=== PATIENT | male | born 1955 | race Caucasian/White ===

== ENCOUNTER 2018-03-23 16:24 | Observation (INO) | payer MEDICARE ==
[~2018-03-23] VITALS: Ht 188 cm; Wt 98.4 kg
[~2018-03-23 16:24] MED LIST: AMIKACIN S1000 MG/4 INJ; AMLO10 PO; AZIT500 PO; BACL20 PO; CEPH500 PO; ETHA400 PO; FENT100TP TOP; GABA100 PO; HYDCHL25 PO; Imitrex50 MG JT; MORP60ER PO; MOXI400 PO; MYCOBUTIN PO; Norvasc10 MG PO; Nyamyc15 GM TP; ONDA4 PO; Senna-Docusate1 EACH PO; TUMS DUAL ACTI1 EACH PO
[2018-03-23 18:46] LABS: Troponin I <0.015 ng/mL (0.000-0.040)
[2018-03-23 18:48] LABS: Alanine Aminotransfer (ALT/SGP 31 U/L (12-78); Albumin/Globulin Ratio 1.2 (0.8-1.8); Alk Phos 102 U/L (50-136); Anion Gap Unable to Calculate mmol/L (6-16); Aspartate Aminotrans (AST/SGOT 28 U/L (12-37); Bilirubin, Total 0.3 mg/dL (0.1-1.0); Blood Urea Nitrogen 21 mg/dL (8-24); Bun/Creatinine Ratio 18.1 (12.0-20.0); CO2, Blood <1 mmol/L (21-32); Calcium, Blood <5.0 mg/dL (8.5-10.1); Chloride, Blood 106 mmol/L (98-108); Creatinine, Blood 1.16 mg/dL (0.60-1.20); Globulin, Blood 3.4 g/dL (2.2-4.0); Glomerular Filtration Rate >60 (60-); Glucose, Blood 142 mg/dL (70-99); Potassium, Blood 4.4 mmol/L (3.5-5.5); Sodium, Blood 138 mmol/L (136-145); Total Protein, Blood 7.4 g/dL (6.4-8.2)
[2018-03-23 18:56] LABS: BASOPHILS ABSOLUTE AUTO 0.05 K/mm3 (0.00-0.23); BASOPHILS PERCENT AUTO 1 % (0-2); EOSINOPHILS ABSOLUTE AUTO 0.37 K/mm3 (0.00-0.68); EOSINOPHILS PERCENT AUTO 4 % (0-6); Hematocrit 43.6 % (37.0-53.0); Hemoglobin 15.1 g/dL (13.5-17.5); IMMATURE GRAN ABSOLUTE AUTO 0.02 K/mm3 (0.00-0.10); IMMATURE GRAN PERCENT AUTO 0 % (0-1); LYMPHOCYTES ABSOLUTE AUTO 2.09 K/mm3 (0.84-5.20); LYMPHOCYTES PERCENT AUTO 22 % (21-46); MONOCYTES ABSOLUTE AUTO 0.84 K/mm3 (0.16-1.47); MONOCYTES PERCENT AUTO 9 % (4-13); Mean Corpuscular HGB 32.3 pg (26.0-34.0); Mean Corpuscular HGB Conc 34.6 g/dL (31.5-36.5); Mean Corpuscular Volume 93 fL (80-100); NEUTROPHILS ABSOLUTE AUTO 6.19 K/mm3 (1.96-9.15); NEUTROPHILS PERCENT AUTO 65 % (41-73); Platelet Count 299 K/mm3 (150-400); RDW Coefficient Variation 12.3 % (11.7-14.2); RDW Standard Deviation 42.6 fL (35.1-46.3); Red Blood Cell Count 4.68 M/mm3 (4.30-5.90); White Blood Cell Count 9.56 K/mm3 (4.00-11.30)
[2018-03-23 19:17] LABS: Alanine Aminotransfer (ALT/SGP 31 U/L (12-78); Albumin/Globulin Ratio 1.2 (0.8-1.8); Alk Phos 100 U/L (50-136); Anion Gap 7 mmol/L (6-16); Aspartate Aminotrans (AST/SGOT 24 U/L (12-37); Bilirubin, Total 0.3 mg/dL (0.1-1.0); Blood Urea Nitrogen 20 mg/dL (8-24); Bun/Creatinine Ratio 18.3 (12.0-20.0); CO2, Blood 26 mmol/L (21-32); Calcium, Blood 9.4 mg/dL (8.5-10.1); Chloride, Blood 105 mmol/L (98-108); Creatinine, Blood 1.09 mg/dL (0.60-1.20); Globulin, Blood 3.4 g/dL (2.2-4.0); Glomerular Filtration Rate >60 (60-); Glucose, Blood 160 mg/dL (70-99); Potassium, Blood 3.9 mmol/L (3.5-5.5); Sodium, Blood 138 mmol/L (136-145); Total Protein, Blood 7.4 g/dL (6.4-8.2)
[2018-03-23 19:27] LABS: International Normalized Ratio 0.94; Prothrombin Time Results 9.8 Sec (9.7-11.5)
[2018-03-24 05:55] LABS: CHOL/HDL RATIO 2.6; Cholesterol 157 mg/dL (50-200); HDL Cholesterol 61 mg/dL (>39); LDL/HDL RATIO 0.9; Low Density Lipoprotein Chol 56 mg/dL (0-110); Triglycerides 202 mg/dL (30-160); Very Low Density Lipoprot Chol 40 mg/dL (6-32)
[2018-03-24 11:47] LABS: Anion Gap 5 mmol/L (6-16); Blood Urea Nitrogen 18 mg/dL (8-24); Bun/Creatinine Ratio 17.6 (12.0-20.0); CO2, Blood 27 mmol/L (21-32); Chloride, Blood 106 mmol/L (98-108); Creatinine, Blood 1.02 mg/dL (0.60-1.20); Glomerular Filtration Rate >60 (60-); Glucose, Blood 114 mg/dL (70-99); Potassium, Blood 4.1 mmol/L (3.5-5.5); Sodium, Blood 138 mmol/L (136-145)
[2018-03-24 11:53] LABS: Calcium, Blood 9.1 mg/dL (8.5-10.1)
[2018-03-24] MEDS ORDERED: ASPI81CH PO (16:08)
[2018-03-24] MEDS ORDERED: AMLO10 PO (16:09)
[2018-03-24] MEDS ORDERED: ATOR40TA PO (16:09)
== END 2018-03-24 16:46 | disposition home or self-care (01) ==
LOC: ER 16:24 → MEDS 16:25
PROVIDERS: Emergency Medicine; Family Medicine; Internal Medicine
DX: G45.9 Transient cerebral ischemic attack, unspecified (principal); F17.210 Nicotine dependence, cigarettes, uncomplicated; I10 Essential (primary) hypertension; J44.9 Chronic obstructive pulmonary disease, unspecified; Z86.718 Personal history of other venous thrombosis and embolism; Z88.8 Allergy status to other drugs, medicaments and biological substances; Z79.82 Long term (current) use of aspirin; Z79.899 Other long term (current) drug therapy; Z98.890 Other specified postprocedural states
CPT/HCPCS: 36415; 70450; 71046; 80048; 80053; 80061; 82310; 82330; 83036; 83970; 84484; 85025; 85610; 85730; 93005; 93010; 93306; 93880; 96372; 99285; G0378; J1650

== ENCOUNTER 2019-09-12 09:26 | Emergency (ER) | payer OTHER, MEDICARE ==
[~2019-09-12] VITALS: Ht 185.4 cm; Wt 102.1 kg
[~2019-09-12 09:26] MED LIST changes: +ASPI81CH PO; +ATOR40TA PO
== END 2019-09-12 11:18 | disposition left against medical advice (07) ==
LOC: ER 09:26
DX: S39.012A Strain of muscle, fascia and tendon of lower back, initial encounter (principal); W19.XXXA Unspecified fall, initial encounter; Z88.8 Allergy status to other drugs, medicaments and biological substances; I10 Essential (primary) hypertension; Z86.73 Personal history of transient ischemic attack (TIA), and cerebral infarction without residual deficits; F17.210 Nicotine dependence, cigarettes, uncomplicated
CPT/HCPCS: 99283

== ENCOUNTER 2023-05-11 04:05 | Observation (INO) | payer MEDICARE ==
[~2023-05-11] VITALS: Ht 182.9 cm; Wt 96.0 kg
[~2023-05-11 04:05] MED LIST changes: +ASPIR 8181 M1 PO
[2023-05-11 05:54] LABS: BASOPHILS ABSOLUTE AUTO 0.06 K/mm3 (0.00-0.23); BASOPHILS PERCENT AUTO 1 % (0-2); EOSINOPHILS ABSOLUTE AUTO 0.24 K/mm3 (0.00-0.68); EOSINOPHILS PERCENT AUTO 3 % (0-6); Hematocrit 40.4 % (37.0-53.0); Hemoglobin 13.7 g/dL (13.5-17.5); IMMATURE GRAN ABSOLUTE AUTO 0.05 K/mm3 (0.00-0.10); IMMATURE GRAN PERCENT AUTO 1 % (0-1); LYMPHOCYTES ABSOLUTE AUTO 1.78 K/mm3 (0.84-5.20); LYMPHOCYTES PERCENT AUTO 23 % (21-46); MONOCYTES PERCENT AUTO 12 % (4-13); Mean Corpuscular HGB 31.8 pg (26.0-34.0); Mean Corpuscular HGB Conc 33.9 g/dL (31.5-36.5); Mean Corpuscular Volume 94 fL (80-100); NEUTROPHILS ABSOLUTE AUTO 4.75 K/mm3 (1.96-9.15); NEUTROPHILS PERCENT AUTO 61 % (41-73); NRBC ABSOLUTE 0.02 K/mm3 (0.00-0.02); NRBC Auto 0.3 /100 WBC (0.0-0.2); RDW Coefficient Variation 12.4 % (11.7-14.2); RDW Standard Deviation 43.4 fL (35.1-46.3); Red Blood Cell Count 4.31 M/mm3 (4.30-5.90); White Blood Cell Count 7.78 K/mm3 (4.00-11.30)
[2023-05-11 05:56] LABS: Mean Platelet Volume 9.1 fL (9.1-12.4); Platelet Count 274 K/mm3 (150-400)
[2023-05-11 06:19] LABS: Bun/Creatinine Ratio 17.5 (12.0-20.0); Calcium, Blood 8.9 mg/dL (8.5-10.1); Creatinine, Blood 1.26 mg/dL (0.60-1.20); Potassium, Blood 4.1 mmol/L (3.5-5.5)
[2023-05-11 08:09] LABS: CHOL/HDL RATIO 3.1; Cholesterol 173 mg/dL (50-200); HDL Cholesterol 56 mg/dL (>39); LDL/HDL RATIO 1.7; Low Density Lipoprotein Chol 98 mg/dL (0-110); Triglycerides 97 mg/dL (30-160); Very Low Density Lipoprot Chol 19 mg/dL (6-32)
[2023-05-11 09:11] VITALS: BP 169/104
[2023-05-11 09:36] VITALS: BP 168/94
--- NOTE | 2023-05-11 10:10 | NUR ---
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 PT STATES VALIUM DID NOT WORK IN THE PAST. PT ALSO VERBALIZES THAT HE WOULD LIKE TO BE A DNR. DR. CRUZ NOTIFIED AND DNR ORDER PLACED ALONG WITH A ONE TIME ATIVAN ORDER FOR HIS MRI.
--- NOTE | 2023-05-11 11:07 | NUR ---
PT ARRIVED TO ROOM AOX4 AND COOPERATIVE OF CARE VIA WHEELCHAIR. HAD TROUBLE WITH TUBING SYSTEM AND DUE TO THIS TELE WAS LATE GETTING APPLIED NEW ONE HAD TO BE REISSUED.
[2023-05-11 15:41] VITALS: BP 165/109
--- NOTE | 2023-05-11 16:15 | NUR ---
PT HAS BEEN AOX4 AND COOPERATIVE OF ALL CARE. PT HAS HAD ALL SYMTOMS OF L SIDED WEAKNESS RESOLVE PRIOR TO COMMING TO MEDICAL FLOOR. PT WAS TREATED FOR ANXIETY DUE TO NEED FOR MRI. MULTIPLE TRIES WERE DONE TO GET IV PLACED AND NONE WERE SUCCESSFUL. PO ATIVAN WAS GIVEN IN PLACE OF IV. PT WAS ABLE TO COMPLETE MRI. NO DISTRESS NOTED AT THIS TIME WILL CONTINUE TO MONITOR. REMOTE IS WITHIN REACH.
[2023-05-11 17:04] VITALS: BP 160/92
--- NOTE | 2023-05-11 17:44 | NUR ---
PT HAS HAD BP RUNNING HIGHER LAST ONE WAS 160/92. DR VIVAS WAS NOTIFIED OF THIS AND MADE CHANGES TO EMAR.
--- NOTE | 2023-05-11 18:07 | NUR ---
PT HAS HAD NEURO CHECK AT 1000, 1400, AND 1800 AND ALL THREE ARE NEGATIVE AT THIS TIME.
[2023-05-11 20:17] VITALS: BP 192/109
[2023-05-11 20:19] VITALS: BP 196/119
[2023-05-12 04:30] VITALS: BP 145/81
--- NOTE | 2023-05-12 05:14 | NUR ---
SHIFT SUMMARY: PT A&O X4. PT PLEASANT AND COOPERATIVE WITH CARE. PT INDEPENDENT IN ROOM AND IN HALLS. NEURO CHECKS COMPLETED Q4. ALL SYMPTOMS OF L.SIDED WEAKNESS APPEAR TO HAVE RESOLVED. IV ATTEMPTS MADE BUT UNABLE TO OBTAIN IV ACCESS. WILL INFORM DAY SHIFT. TELE IN PLACE RUNNING SINUS RHYTHM. MRI RESULTS FROM PREVIOUS SHIFT IN CHART. PT HAD HYPERTENSION OF SYSTOLIC IN 190'S AT BEGINNING OF SHIFT. MEDICATED PER EMAR. DOWN TO 145/81. PT ASLEEP MOST OF THIS SHIFT. CALL LIGHT IN REACH. BED IN LOWEST POSITION. WILL CONTINUE TO MONITOR.
[2023-05-12 06:19] LABS: Hemoglobin 14.1 g/dL (13.5-17.5); Mean Corpuscular HGB 31.8 pg (26.0-34.0); Mean Corpuscular HGB Conc 34.4 g/dL (31.5-36.5); Mean Corpuscular Volume 92 fL (80-100); Mean Platelet Volume 9.1 fL (9.1-12.4); Platelet Count 299 K/mm3 (150-400); RDW Coefficient Variation 12.5 % (11.7-14.2); RDW Standard Deviation 42.7 fL (35.1-46.3); Red Blood Cell Count 4.44 M/mm3 (4.30-5.90); White Blood Cell Count 6.24 K/mm3 (4.00-11.30)
[2023-05-12 06:36] LABS: Bun/Creatinine Ratio 21.1 (12.0-20.0); Calcium, Blood 9.1 mg/dL (8.5-10.1); Creatinine, Blood 1.09 mg/dL (0.60-1.20)
[2023-05-12 07:37] VITALS: BP 168/77
[2023-05-12 11:46] VITALS: BP 153/78
[2023-05-12] MEDS ORDERED: Acetaminophen650 M1 PO (14:18)
[2023-05-12] MEDS ORDERED: ATOR80 PO (14:19)
[2023-05-12] MEDS ORDERED: PROAIR RESPICL90 MCG (14:20)
[2023-05-12] MEDS ORDERED: AMLO5 PO (14:20)
[2023-05-12] MEDS ORDERED: METO50ER PO (14:21)
[2023-05-12] MEDS ORDERED: ASPI81CH PO (14:21)
--- NOTE | 2023-05-12 15:09 | NUR ---
PT DISCHARGED AT 1440 ALL PAPERWORKED REVIEWED AND EDUCATIONAL MATERIAL SENT WITH PT. PT AOX4 AND NEURO CHECKS AT 0800 AND 1200 WERE NEGATIVE. PT HAD ALL PERSONAL ITEMS AND REFUSED ESCORT OUT AMBULATING ON HIS OWN. PT AMBULATING WELL.
== END 2023-05-12 14:55 | disposition home or self-care (01) ==
LOC: ER 04:05 → MEDS 04:06
PROVIDERS: Emergency Medicine; ADMIT Internal Medicine
DX: G45.9 Transient cerebral ischemic attack, unspecified (principal); I10 Essential (primary) hypertension; J44.9 Chronic obstructive pulmonary disease, unspecified; G89.29 Other chronic pain; M54.9 Dorsalgia, unspecified; E78.5 Hyperlipidemia, unspecified; I73.9 Peripheral vascular disease, unspecified; Z66 Do not resuscitate; Z88.8 Allergy status to other drugs, medicaments and biological substances
CPT/HCPCS: 36415; 70450; 70551; 80048; 80061; 84484; 85025; 85027; 93005; 93010; 93306; 93880; 96372; 97161; 99285-25; A9270; G0378; J1650; J2060

== ENCOUNTER 2024-11-29 02:10 | Observation (INO) | payer MEDICARE, OTHER ==
[~2024-11-29] VITALS: Ht 188 cm; Wt 106.1 kg
[~2024-11-29 02:10] MED LIST changes: +AMLO5 PO; +ATOR80 PO; +Acetaminophen650 M1 PO; +METO50ER PO; +PROAIR RESPICL90 MCG
[2024-11-29 02:52] LABS: BASOPHILS ABSOLUTE AUTO 0.09 K/mm3 (0.00-0.23); BASOPHILS PERCENT AUTO 1 % (0-2); EOSINOPHILS PERCENT AUTO 5 % (0-6); Hematocrit 38.5 % (37.0-53.0); Hemoglobin 13.6 g/dL (13.5-17.5); IMMATURE GRAN ABSOLUTE AUTO 0.05 K/mm3 (0.00-0.10); IMMATURE GRAN PERCENT AUTO 1 % (0-1); LYMPHOCYTES ABSOLUTE AUTO 2.37 K/mm3 (0.84-5.20); LYMPHOCYTES PERCENT AUTO 27 % (21-46); MONOCYTES ABSOLUTE AUTO 0.76 K/mm3 (0.16-1.47); MONOCYTES PERCENT AUTO 9 % (4-13); Mean Corpuscular HGB 33.3 pg (26.0-34.0); Mean Corpuscular HGB Conc 35.3 g/dL (31.5-36.5); Mean Corpuscular Volume 94 fL (80-100); Mean Platelet Volume 9.2 fL (9.1-12.4); NEUTROPHILS ABSOLUTE AUTO 5.11 K/mm3 (1.96-9.15); NEUTROPHILS PERCENT AUTO 58 % (41-73); Platelet Count 268 K/mm3 (150-400); RDW Coefficient Variation 12.8 % (11.7-14.2); RDW Standard Deviation 44.3 fL (35.1-46.3); Red Blood Cell Count 4.08 M/mm3 (4.30-5.90); White Blood Cell Count 8.78 K/mm3 (4.00-11.30)
[2024-11-29 03:16] LABS: Alanine Aminotransfer (ALT/SGP 28 U/L (12-78); Albumin, Blood 3.7 g/dL (3.4-5.0); Albumin/Globulin Ratio 1.2 (0.8-1.8); Alk Phos 92 U/L (50-136); Anion Gap 12 mmol/L (3-11); Aspartate Aminotrans (AST/SGOT 22 U/L (12-37); Bilirubin, Total 0.4 mg/dL (0.1-1.0); Blood Urea Nitrogen 26 mg/dL (8-24); Bun/Creatinine Ratio 22.6 (12.0-20.0); CO2, Blood 21 mmol/L (21-32); Calcium, Blood 9.3 mg/dL (8.5-10.1); Chloride, Blood 108 mmol/L (98-108); Creatinine, Blood 1.15 mg/dL (0.60-1.20); Globulin, Blood 3.2 g/dL (2.2-4.0); Glomerular Filtration Rate 70 (60-); Glucose, Blood 182 mg/dL (70-99); Potassium, Blood 4.3 mmol/L (3.5-5.5); Sodium, Blood 137 mmol/L (136-145); Total Protein, Blood 6.9 g/dL (6.4-8.2)
[2024-11-29 03:52] LABS: International Normalized Ratio 0.91; Prothrombin Time Results 9.8 Sec (9.7-11.5)
[2024-11-29 04:14] LABS: Ethanol (Alcohol), Blood, Med <3 mg/dL; Phosphorus, Blood 2.9 mg/dL (2.5-4.9)
[2024-11-29] MEDS ORDERED: Nicotine 14 MG PATCH TOP ONE (04:15)
[2024-11-29] MEDS ORDERED: FLU VACC TS2024-25(6MOS UP)/PF 45 MCG/0.5 ML SYRINGE IM ONE (04:35)
[2024-11-29] MEDS ORDERED: Acetaminophen 325 MG TABLET PO PRN (04:40)
[2024-11-29] MEDS ORDERED: Ondansetron HCl 2 MG / ML 2ML Vial IV PRN (04:40)
[2024-11-29] MEDS ORDERED: Clopidogrel Bisulfate 75 MG Tab PO SCH (05:00)
[2024-11-29] MEDS ORDERED: Aspirin 81 MG Chew PO SCH (05:00)
[2024-11-29 05:46] LABS: Source, Urine Clean Catch
[2024-11-29 06:07] LABS: Bilirubin, Urine Neg (Neg); Blood, Urine Neg (Neg); Glucose Qualitative, Urine 1+ (Neg); Ketones, Urine Neg (Neg); Leukocyte Esterase, Urine Neg (Neg); Nitrite, Urine Neg (Neg); Protein, Urine Neg (Neg); Urobilinogen, Urine NORM (Normal)
[2024-11-29 06:08] LABS: Appearance, Urine Clear (Clear); Color, Urine Yellow (P-Yellow)
[2024-11-29 06:28] LABS: U Amphetamine Screen Not Detected; U Barbituate Screen Not Detected; U Benzodiazapine Screen Not Detected; U Buprenorphine Screen Not Detected; U Cannabinoids Screen Not Detected; U Cocaine Screen Not Detected; U Methadone Screen Not Detected; U Methamphetamine Screen Not Detected; U Opiates Screen Not Detected; U Oxycodone Screen Not Detected; U Phencyclidine Screen Not Detected
[2024-11-29 06:36] LABS: CHOL/HDL RATIO 3.4; Cholesterol 223 mg/dL (50-200); HDL Cholesterol 65 mg/dL (>39); LDL/HDL RATIO 1.6; Low Density Lipoprotein Chol 101 mg/dL (0-110); Triglycerides 285 mg/dL (30-160); Very Low Density Lipoprot Chol 57 mg/dL (6-32)
[2024-11-29] MEDS ORDERED: Atorvastatin 40 MG Tab PO SCH (09:00)
[2024-11-29 13:45] VITALS: BP 182/81
[2024-11-29 15:29] VITALS: BP 170/102
[2024-11-29] MEDS ORDERED: HydrALAZINE HCl 20 MG / ML 1ML Vial IV ONE (16:00)
[2024-11-29 16:29] VITALS: BP 151/88
--- NOTE | 2024-11-29 17:07 | NUR ---
ADMISSION AND DISCHARGE PATIENT ADMITTED AND DISCHARGED FROM MEDICAL FLOOR. PATIENT HAD STROKE LIKE SYMPTOMS BUT SHOWED NO NEW STROKE WITH WORK UP. PATIENT ALERT ABLE TO WALK WITH PT WITHOUT ASSISTIVE DEVICES. PATIENT ABLE TO ANSWER QUESTIONS BUT FORGETFUL. PATIENT ADMITS PRIOR TO DISCHARGE THAT HE DOES NOT HAVE ANY MEDICATIONS AT HOME AND HAS NOT BEEN TAKING THEM FOR A LONG TIME. PROVIDED EDUCATION ON THE IMPORTANCE OF TAKING MEDICATIONS, DIET AND STIMULANT REDUCTION TO HELP REDUCE BLOOD PRESSURE. PATIENT ENCOURAGED TO MONITOR BLOOD PRESSURE AND OBTAIN PCP. IV DC'D. DISCHARGE INSTRUCTIONS REVIEWED WITH PATIENT AND FAMILY. PATIENT ESCORTED OUT VIA WHEELCHAIR. BELONGINGS SENT HOME WIHT PATIENT.
--- NOTE | 2024-11-29 17:36 | NUR ---
RX CALLED TO [facility] PATIENT DOES NOT HAVE MEDICATIONS AVAILABLE AT HOME. ORDER OBTAINED FROM DR WEBSTER TO CALL IN 30 DAY SUPPLY OF MEDICATIONS. MEDICATIONS CALLED TO [facility] AND MESSAGE LEFT.
== END 2024-11-29 17:00 | disposition home or self-care (01) ==
LOC: ER 02:10 → ERHOLD 02:11 → MEDS 13:38 → ENPENDDIS 15:55 → MEDS 17:00
PROVIDERS: Emergency Medicine; ADMIT Student in an Organized Health Care Education/Training Program
DX: I63.9 Cerebral infarction, unspecified (principal); R29.702 NIHSS score 2; I10 Essential (primary) hypertension; J44.9 Chronic obstructive pulmonary disease, unspecified; F10.10 Alcohol abuse, uncomplicated; F17.210 Nicotine dependence, cigarettes, uncomplicated; Z88.8 Allergy status to other drugs, medicaments and biological substances; Z79.82 Long term (current) use of aspirin; Z79.899 Other long term (current) drug therapy
CPT/HCPCS: 36415; 70450; 70496; 70498; 70551; 71045; 80053; 80061; 80320; 81003; 83036; 83735; 84100; 85025; 85610; 85730; 90656; 93005; 93010; 93306; 93880; 96374; 97110; 97116; 97161; 99285-25; A9270; G0008; G0378; J0360; Q9967

== ENCOUNTER 2025-03-28 19:00 | Emergency (ER) | payer MEDICARE, OTHER | END 2025-03-28 19:45 | disposition left against medical advice (07) | LOC: ER 19:00 | DX: Z53.21 Procedure and treatment not carried out due to patient leaving prior to being seen by health care provider (principal) ==

== ENCOUNTER 2025-06-13 14:27 | Inpatient (IN) | payer MEDICARE, OTHER ==
[~2025-06-13] VITALS: Ht 188 cm; Wt 103.1 kg
[2025-06-13] VITALS (16 sets, daily range): BP systolic 122–150; BP diastolic 57–70
[2025-06-13] MEDS ORDERED: NS 1,000 ML IV SCH ×2 (14:35→18:25)
[2025-06-13 15:07] LABS: BASOPHILS ABSOLUTE AUTO 0.01 K/mm3 (0.00-0.23); BASOPHILS PERCENT AUTO 0 % (0-2); EOSINOPHILS ABSOLUTE AUTO 0.01 K/mm3 (0.00-0.68); EOSINOPHILS PERCENT AUTO 0 % (0-6); Hematocrit 46.5 % (37.0-53.0); Hemoglobin 15.0 g/dL (13.5-17.5); IMMATURE GRAN ABSOLUTE AUTO 0.06 K/mm3 (0.00-0.10); IMMATURE GRAN PERCENT AUTO 1 % (0-1); LYMPHOCYTES ABSOLUTE AUTO 0.47 K/mm3 (0.84-5.20); LYMPHOCYTES PERCENT AUTO 4 % (21-46); MONOCYTES ABSOLUTE AUTO 0.57 K/mm3 (0.16-1.47); MONOCYTES PERCENT AUTO 4 % (4-13); Mean Corpuscular HGB Conc 32.3 g/dL (31.5-36.5); Mean Corpuscular Volume 99 fL (80-100); NEUTROPHILS ABSOLUTE AUTO 11.72 K/mm3 (1.96-9.15); NEUTROPHILS PERCENT AUTO 91 % (41-73); NRBC ABSOLUTE 0.00 K/mm3 (0.00-0.02); NRBC Auto 0.0 /100 WBC (0.0-0.2); Platelet Count 266 K/mm3 (150-400); RDW Coefficient Variation 12.9 % (11.7-14.2); RDW Standard Deviation 47.2 fL (35.1-46.3)
[2025-06-13 15:19] LABS: U Amphetamine Screen DETECTED; U Barbituate Screen Not Detected; U Benzodiazapine Screen Not Detected; U Buprenorphine Screen Not Detected; U Cannabinoids Screen Not Detected; U Cocaine Screen Not Detected; U Methadone Screen Not Detected; U Methamphetamine Screen DETECTED; U Opiates Screen Not Detected; U Oxycodone Screen Not Detected; U Phencyclidine Screen Not Detected
[2025-06-13] MEDS ORDERED: CefTRIAXone Sodium 1,000 MG in NS 100 ML IV ONE (15:20)
[2025-06-13 15:46] LABS: Source, Urine Foley catheter
[2025-06-13 15:50] LABS: Bilirubin, Urine Neg (Neg); Color, Urine Yellow (P-Yellow); Glucose Qualitative, Urine Neg (Neg); Ketones, Urine Neg (Neg); Leukocyte Esterase, Urine Neg (Neg); Protein, Urine 3+ (Neg); Specific Gravity, Urine 1.025 (1.003-1.022); Urobilinogen, Urine NORM (Normal)
[2025-06-13 16:00] LABS: pH Blood Arterial 7.30 (7.35-7.45)
[2025-06-13 16:19] LABS: Alanine Aminotransfer (ALT/SGP 65 U/L (12-78); Albumin, Blood 4.3 g/dL (3.4-5.0); Albumin/Globulin Ratio 1.2 (0.8-1.8); Anion Gap 10 mmol/L (3-11); Aspartate Aminotrans (AST/SGOT 94 U/L (12-37); Bilirubin, Total 0.4 mg/dL (0.1-1.0); Blood Urea Nitrogen 32 mg/dL (8-24); CO2, Blood 24 mmol/L (21-32); Calcium, Blood 9.3 mg/dL (8.5-10.1); Chloride, Blood 109 mmol/L (98-108); Creatinine, Blood 3.24 mg/dL (0.60-1.20); Globulin, Blood 3.5 g/dL (2.2-4.0); Glucose, Blood 131 mg/dL (70-99); Potassium, Blood 5.1 mmol/L (3.5-5.5); Sodium, Blood 138 mmol/L (136-145); Total Protein, Blood 7.8 g/dL (6.4-8.2)
[2025-06-13 16:21] LABS: Ethanol (Alcohol), Blood, Med <3 mg/dL
[2025-06-13] MEDS ORDERED: Ipratropium/Albuterol SulF 2.5-0.5MG/3 ML Amp INH SCH ×2 (18:25→19:40)
[2025-06-13] MEDS ORDERED: HydrALAZINE HCl 20 MG / ML 1ML Vial IV PRN (18:30)
[2025-06-13] MEDS ORDERED: Albuterol 2.5 MG/3 ML VIAL INH PRN (18:30)
[2025-06-13] MEDS ORDERED: NS 1,000 ML IV ONE (19:00)
[2025-06-13] MEDS ORDERED: Cetylpyridinium Chloride 1 EA MISC MT SCH (20:00)
[2025-06-13 20:41] LABS: Anion Gap 9.0 mmol/L (3-11); Blood Urea Nitrogen 33.0 mg/dL (8-24); CO2, Blood 24.0 mmol/L (21-32); Calcium, Blood 8.6 mg/dL (8.5-10.1); Chloride, Blood 110.0 mmol/L (98-108); Creatinine, Blood 2.9 mg/dL (0.60-1.20); Glucose, Blood 123.0 mg/dL (70-99); Potassium, Blood 4.6 mmol/L (3.5-5.5); Sodium, Blood 138.0 mmol/L (136-145)
[2025-06-13] MEDS ORDERED: Heparin Sodium,Porcine 5,000 UNIT/0.5 ML SDV SC SCH (21:00)
[2025-06-13 22:12] LABS: pH Blood Venous 7.24 (7.34-7.37)
[2025-06-14] VITALS (87 sets, daily range): BP systolic 96–148; BP diastolic 49–109
[2025-06-14] MEDS ORDERED: Hydrogen Peroxide 1.5 % Solution MT SCH
[2025-06-14 04:27] LABS: BASOPHILS ABSOLUTE AUTO 0.02 K/mm3 (0.00-0.23); BASOPHILS PERCENT AUTO 0 % (0-2); EOSINOPHILS ABSOLUTE AUTO 0.00 K/mm3 (0.00-0.68); EOSINOPHILS PERCENT AUTO 0 % (0-6); Hematocrit 41.1 % (37.0-53.0); Hemoglobin 13.6 g/dL (13.5-17.5); IMMATURE GRAN ABSOLUTE AUTO 0.06 K/mm3 (0.00-0.10); IMMATURE GRAN PERCENT AUTO 0 % (0-1); LYMPHOCYTES ABSOLUTE AUTO 0.85 K/mm3 (0.84-5.20); LYMPHOCYTES PERCENT AUTO 6 % (21-46); MONOCYTES ABSOLUTE AUTO 1.19 K/mm3 (0.16-1.47); MONOCYTES PERCENT AUTO 8 % (4-13); Mean Corpuscular HGB Conc 33.1 g/dL (31.5-36.5); Mean Corpuscular Volume 98 fL (80-100); NEUTROPHILS ABSOLUTE AUTO 12.84 K/mm3 (1.96-9.15); NEUTROPHILS PERCENT AUTO 86 % (41-73); NRBC ABSOLUTE 0.00 K/mm3 (0.00-0.02); NRBC Auto 0.0 /100 WBC (0.0-0.2); Platelet Count 180 K/mm3 (150-400); RDW Coefficient Variation 13.1 % (11.7-14.2); RDW Standard Deviation 46.9 fL (35.1-46.3)
[2025-06-14 05:07] LABS: Magnesium, Blood 2.0 mg/dL (1.6-2.4); Uric Acid, Blood 8.4 mg/dL (3.5-7.2)
[2025-06-14 05:11] LABS: Alanine Aminotransfer (ALT/SGP 56.0 U/L (12-78); Albumin, Blood 3.2 g/dL (3.4-5.0); Albumin/Globulin Ratio 1.0 (0.8-1.8); Anion Gap 9.0 mmol/L (3-11); Aspartate Aminotrans (AST/SGOT 104.0 U/L (12-37); Bilirubin, Total 0.4 mg/dL (0.1-1.0); Blood Urea Nitrogen 36.0 mg/dL (8-24); CO2, Blood 23.0 mmol/L (21-32); Calcium, Blood 8.5 mg/dL (8.5-10.1); Chloride, Blood 113.0 mmol/L (98-108); Creatinine, Blood 2.72 mg/dL (0.60-1.20); Globulin, Blood 3.1 g/dL (2.2-4.0); Glucose, Blood 139.0 mg/dL (70-99); Phosphorus, Blood 5.4 mg/dL (2.5-4.9); Potassium, Blood 4.9 mmol/L (3.5-5.5); Sodium, Blood 140.0 mmol/L (136-145); Total Protein, Blood 6.3 g/dL (6.4-8.2)
[2025-06-14 06:00] LABS: pH Blood Arterial 7.24 (7.35-7.45)
[2025-06-14] MEDS ORDERED: Pantoprazole Sodium 40 MG Injection IV SCH (06:00)
--- NOTE | 2025-06-14 06:25 | NUR ---
SHIFT SUMMARY: PT ADMITTED LATE AFTERNOON, YESTERDAY, PT POST CARDIAC ARREST. PT UNRESPONSIVE AND INTUBATED. NO FAMILY W/PT. PT REMAINS MAINLY UNRESPONSIVE, ONLY INTERMITTENTLY RESPONSIVE TO PAINFUL STIMULI. PT HAS UPWARD-RIGHT GAZE, MAKES NON-PURPOSEFUL MOVEMENTS (MAILY W/R EXTREMITIES). L SIDED WEAKNESS NOTABLE (NO MOVEMENT SEEN IN LUE) AND MINIMAL MOVEMENT IN LLE. PT REMAINS VENTED. SETTINGS AC/VC 16/500/8/45%. SBP STABLE. MAP>65. HR 90S, SINUS. ABD SOFT TO PALPATION, BT HYPOACTIVE X4. TEMP TELLO IN PLACE, PATENT, DRAINING TO GRAVITY. PT HAS I/O ACCESS ONLY ALL PERIPHERAL IV ATTEMPTS EITHER INFILTRATED OR BLEW. THIS RN TO CONTINUE TO MONITOR AND REPORT TO ONCOMING RN.
--- NOTE | 2025-06-14 08:57 | NUR ---
[place] of Care: Care assumed at 0700hr. Patient intubated, but not on any sedation since arrival to ICU yesterday. Patient mostly unresponsive, no response to verbal stimuli. No withdraw to painful stimuli on all 4 extremities. Slight brow furrow with oral stimuli. No gag reflex but does have cough reflex and plantar reflex. Pupils 1-2mm with no response to light and fixed upward gaze. Breathing at backup rate on vent of 16. Rt then turned backup respiratory rate, patient initiated his own breaths at approx 12/min. Tolerating vent without difficulty. X2 I/O's in place, both patent and intact. Plan to place PICC line this morning and remove I/O's. Bilateral soft wrist restraints removed due minimal responsiveness. Will continue to monitor.
[2025-06-14] MEDS ORDERED: Magnesium Hydroxide Conc 10 ML UDC PT PRN (12:50)
[2025-06-14] MEDS ORDERED: Docusate Sodium Liquid 100 MG UDC PT PRN (12:50)
[2025-06-14] MEDS ORDERED: NS 1,000 ML IV SCH (14:05)
[2025-06-14] MEDS ORDERED: Vancomycin (Pharmacy Consult) IV SCH (14:05)
[2025-06-14] MEDS ORDERED: Vancomycin HCL 2,500 MG in NS 500 ML IV ONE (14:20)
[2025-06-14] MEDS ORDERED: CefTRIAXone Sodium 1,000 MG in NS 100 ML IV SCH (14:30)
[2025-06-14] MEDS ORDERED: NS 250 ML IV PRN (14:35)
--- NOTE | 2025-06-14 18:02 | NUR ---
Shift Summary: No significant changes throughout shift. Neuro assessment remains unchanged (see assumption note). OG tube placed this morning for PT medications and tube feeding. No s/s of GI intolerance thus far. PICC line placed mid day via difficult and only have IO access. PICC line remains patent and intact. Marai cath remains patent and intact, draining clear yellow urine, approx 1L output this shift. X2 Sisters at bedside today, who had multiple conversations with this RN and Dr. Byrd. Plan established to give patient 48-72hr, but likely transition to comfort measures if no meaningful improvement noted.
[2025-06-15] VITALS (55 sets, daily range): BP systolic 108–167; BP diastolic 45–85
[2025-06-15 03:43] LABS: BASOPHILS ABSOLUTE AUTO 0.03 K/mm3 (0.00-0.23); BASOPHILS PERCENT AUTO 0 % (0-2); EOSINOPHILS ABSOLUTE AUTO 0.05 K/mm3 (0.00-0.68); EOSINOPHILS PERCENT AUTO 0 % (0-6); Hematocrit 33.3 % (37.0-53.0); Hemoglobin 10.8 g/dL (13.5-17.5); IMMATURE GRAN ABSOLUTE AUTO 0.03 K/mm3 (0.00-0.10); IMMATURE GRAN PERCENT AUTO 0 % (0-1); LYMPHOCYTES ABSOLUTE AUTO 1.02 K/mm3 (0.84-5.20); LYMPHOCYTES PERCENT AUTO 9 % (21-46); MONOCYTES ABSOLUTE AUTO 0.73 K/mm3 (0.16-1.47); MONOCYTES PERCENT AUTO 6 % (4-13); Mean Corpuscular HGB Conc 32.4 g/dL (31.5-36.5); Mean Corpuscular Volume 100 fL (80-100); NEUTROPHILS ABSOLUTE AUTO 10.20 K/mm3 (1.96-9.15); NEUTROPHILS PERCENT AUTO 85 % (41-73); NRBC ABSOLUTE 0.00 K/mm3 (0.00-0.02); NRBC Auto 0.0 /100 WBC (0.0-0.2); Platelet Count 168 K/mm3 (150-400); RDW Coefficient Variation 13.3 % (11.7-14.2); RDW Standard Deviation 49.3 fL (35.1-46.3)
--- NOTE | 2025-06-15 06:03 | NUR ---
SHIFT SUMMARY: PT REMAINS VENTED. NO SEDATION SINCE ADMIT. PT RESPONSIVE TO ORAL CARE/TURNS. HE FURROWS BROWS AND WILL RAISE PRAKASH AND RLE. PT OBSERVED TO SCRATCH HIMSELF, WHICH APPEARED INTENTIONAL. R EYE NOW RESPONSIVE TO LIGHT WHILE L EYE CONTINUES TO BE FIXED. PT NOW OPENS EYES OCCASSIONALLY DURING CARE. HIS GAZE NOW MOVES AROUND, NOT ONLY FIXED UPWARD; DOES NOT MAKE APPROPRIATE EYE CONTACT. CORNEAL REFLEX REMAINS INTACT. PT VENT SETTINGS ARE AC/VC 16/500/8/FIO2 45%. SATS >95%. PT HAS OCCASSIONAL COUGH W/MODERATE PRODUCTION OF THICK BROWN/YELLOW SECRETIONS. NO GAG OR SWALLOW REFLEX NOTED. SBP REMAINS STABLE, NO PRESSORS INFUSING. MAPS>65. HR 70S-90S. BT HYPOACTIVE X4. TEMP TELLO PATENT, DRAINING TO GRAVITY. PT HAS PICC IN AMPARO, INFUSING TKO, NS, 10ML/HR.
[2025-06-15 08:05] LABS: Anion Gap 13 mmol/L (3-11); Blood Urea Nitrogen 44 mg/dL (8-24); CO2, Blood 24 mmol/L (21-32); Calcium, Blood 8.6 mg/dL (8.5-10.1); Chloride, Blood 111 mmol/L (98-108); Creatinine, Blood 2.08 mg/dL (0.60-1.20); Glucose, Blood 204 mg/dL (70-99); Magnesium, Blood 2.1 mg/dL (1.6-2.4); Phosphorus, Blood 2.5 mg/dL (2.5-4.9); Potassium, Blood 4.5 mmol/L (3.5-5.5); Sodium, Blood 143 mmol/L (136-145)
[2025-06-15] MEDS ORDERED: Lactobacil 2-S.Thermo-Bifido 1 1 Cap PO SCH (09:00)
--- NOTE | 2025-06-15 09:22 | NUR ---
FAMILY CONTACT THIS RN SPEAKING TO PT'S BROTHER "BERT" WHE CALLED AND REQUESTED AN UPDATE ON THE PT'S CONDITION. BERT WAS GIVEN AN UPDATE AND THANKED THIS RN FOR THE INFORMATION.
--- NOTE | 2025-06-15 10:08 | NUR ---
PT'S SISTERS WERE HERE FROM [place] TO SEE PT YESTERDAY. SISTER MONICA'S PHONE NUMBER IS [phone]. NO CONTACT INFO FOR SISTER DEAN. PT ALSO HAS A BROTHER, BERT MARTINEZ WHOM LIVES IN [facility] [phone]. PT RECENTLY STARTED STAYING WITH A LADY NAMED SHAILA [phone]. SHAILA REPORTS SHE HAS NOT KNOWN PT FOR VERY LONG. THERE IS QUESTION IF PT IS LEGALLY TO BRITTANIE MARTINEZ. ACCORDING TO SHAILA PT HAS ALWAYS TOLD HER THAT HE IS NOT AND OCCATIONALLY MENTIONED HIS EX-. PLAN: [facility] PALLIATIVE CARE NURSE TO ATTEMPT TO REACH OUT TO FAMILY FOR GOC.
[2025-06-15] MEDS ORDERED: Insulin Regular 100 UNIT/ML 10ML Vial SC SCH (12:00)
--- NOTE | 2025-06-15 12:00 | NUR ---
1200 assessment PT NOW HAVING SHOWING SOME RESPONSE TO NOXIOUS STIMULI W INCREASED RESP RATE AND DEPTH OF BREATHING WHEN NOXIOUS STIMULI IS APPLIED. WHEN PT TURNED IN BED HE OPENED HIS EYES LOOKING AT STAFF BRIEFLY. PT SCRATHING HIS CHEST AND SHOWING WHAT APPEARS TO BE PURPOSEFUL MOVEMNT IN R ARM. PT NOW SHOWING POSITIVE CORNEAL REFLEX IN BOTH EYES. NO GAG REFLEX BUT PT PULLING AWAY FROM ORAL CARE. COUGH REFLEX INTACT. PT SWITCHED TO PRESSURE SUPPORT ON ELIZA VENTILATOR THIS AM WHICH HE IS TOLERATING WELL. PT DOES HAVE LOW RESP RATE <12 AT TIMES BUT TIDAL VOLUMES WNL AND CO2 STABLE <45. DR. RODRIGUEZ NOTIFIED OF NEURO CHANGES. PT'S R ARM PLACED IN RESTRAINT DUE TO INCREASED MOVEMENT TOWARDS THE ET TUBE. DR. RODRIGUEZ COMING TO BEDSIDE TO EVALUATE PT AND GIVING VERBAL ORDERS TO HOLD TUBE FEEDS FOR POSSIBLE EXTUBATION.
[2025-06-15 12:53] LABS: pH Blood Venous 7.34 (7.34-7.37)
[2025-06-15 15:26] LABS: Hematocrit 33.2 % (37.0-53.0); Hemoglobin 10.6 g/dL (13.5-17.5)
--- NOTE | 2025-06-15 15:35 | NUR ---
PROVIDER CONTACT DR. RODRIGUEZ NOTIFIED OF 1500 H&H RESULTS. VERBAL INSTRUCTIONS TO RESUME SQ HEPARIN PROPHYLAXIS AT THIS TIME.
--- NOTE | 2025-06-15 15:50 | NUR ---
1600 ASSESSMENT PT STILL NOT WAKING UP SO PER DR. RODRIGUEZ THE PT TO REMAIN INTUBATED AND TUBE FEEDS RESUMED. PT DOES OPEN HIS EYES BRIEFLY WHEN HE IS TURNED IN THE BED BUT DOES NOT LOOK AT STAFF OR MAKE ANY EYE CONTACT. PT W BILATERAL POSITIVE CORNEAL REFLEX. NO GAG REFLEX PRESENT BUT HE HAS STRONG COUGH. PUPILS REMAINS SMALL AND UNREACTIVE TO LIGHT. PT MOVE R EXTREMITIES BUT IS LIMITED DUE TO R UPPER EXTREMITY RESTRAINT. PT'S VENT SETTINGS PRESSURE SUPPORT 3/5.O W 35% FIO2 TOLERATING WELL. TF INFUSING AT GOAL RATE. PT'S MONITOR SHOWING SR 90'S BUT PT'S HR INCREASING W PHYSICAL STIMULATION. TEMP TELLO SHOWING PT IS AFEBRILE. BP STABLE. PT'S SISTER AT THE BEDSIDE AND IS UPDATED ON PT'S CONDITION AND PLAN OR CARE. PT'S LS ARE CLEAR IN UPPER LOBES AND COARSE IN BILATERAL BASES. THIS RN WILL GIVE REPORT TO EDDY SAEED WHO WILL ASSUME CARE OF PT FOR REMAINDER OF THE SHIFT.
--- NOTE | 2025-06-15 16:00 | NUR ---
ASSUMED CARE OF PATIENT AT 1600.
[2025-06-15 16:30] LABS: Vancomycin, Random 21.5 ug/mL
--- NOTE | 2025-06-15 17:00 | NUR ---
DR RODRIGUEZ AT BEDSIDE. PLAN FOR NPO AT MIDNIGHT FOR TOMI TOMORROW MORNING. SHIFT SUMMARY: ASSUMED CARE AT 1600. NEURO: PT NOT OPENING EYES INDEPENDENTLY. NO PURPOSEFUL MOVMENT FOR ME, HE DID SQUEEZE MY HAND ONCE BUT UNABLE TO REPLICATE ACTION. UNABLE TO FOLLOW COMMANDS. HE IS NOT ON ANY SEDATION. PUPILS ARE EQUAL AND SMALL BUT NOT REACTIVE. GOOD CORNEAL REFLEX BILATERALLY. RESPONDING TO PAIN IN ALL EXTREMITIES. GOOD COUGH, NO GAG. CARDIAC: HR 80S, SR/SINUS ARRYTHMIA PULM: COARSE THROUGH OUT, +THICK YELLOW/ALFARO SECRETIONS. GOOD COUGH. GI: ABDOMEN SOFT.NON TENDER, NORMOACTIVE BOWEL TONES : TELLO, URINE CLEAR YELLOW. SKIN: INTACT SOME NOTED PAIN, GRIMACE AND AGITATION. TELEPHONE ORDER RECIEVED FROM DR RODRIGUEZ FOR PAIN MANAGMENT. MANY FAMILY MEMBERS AND FRIENDS INTO VISIT TODAY. SISTER BIN, AUNT NEW, NIECE INGE AND GIRLFRIEND JAYDE. PT TOLERATING SPONTANEOUS VENT SETTINGS WELL, RR 9-14 [address] VOLUMES. DR RODRIGUEZ SWITCHED PT BACK TO ACVC SETTINGS FOR THE EVENING. /, PT TOLERATING WELL.
[2025-06-15] MEDS ORDERED: FentaNYL Citrate 50 MCG/ML 2 ML Injection IV PRN (17:10)
[2025-06-16] VITALS (33 sets, daily range): BP systolic 131–215; BP diastolic 56–94
[2025-06-16 04:03] LABS: BASOPHILS PERCENT AUTO 0 % (0-2); IMMATURE GRAN PERCENT AUTO 0 % (0-1); NRBC ABSOLUTE 0.00 K/mm3 (0.00-0.02); NRBC Auto 0.0 /100 WBC (0.0-0.2)
[2025-06-16 04:52] LABS: BASOPHILS ABSOLUTE AUTO 0.03 K/mm3 (0.00-0.23); BASOPHILS PERCENT AUTO 0 % (0-2); EOSINOPHILS ABSOLUTE AUTO 0.21 K/mm3 (0.00-0.68); EOSINOPHILS PERCENT AUTO 2 % (0-6); Hematocrit 30.9 % (37.0-53.0); Hemoglobin 10.2 g/dL (13.5-17.5); IMMATURE GRAN ABSOLUTE AUTO 0.06 K/mm3 (0.00-0.10); IMMATURE GRAN PERCENT AUTO 1 % (0-1); LYMPHOCYTES ABSOLUTE AUTO 1.03 K/mm3 (0.84-5.20); LYMPHOCYTES PERCENT AUTO 10 % (21-46); MONOCYTES ABSOLUTE AUTO 0.91 K/mm3 (0.16-1.47); MONOCYTES PERCENT AUTO 9 % (4-13); Mean Corpuscular HGB Conc 33.0 g/dL (31.5-36.5); Mean Corpuscular Volume 99 fL (80-100); NEUTROPHILS ABSOLUTE AUTO 7.67 K/mm3 (1.96-9.15); NEUTROPHILS PERCENT AUTO 77 % (41-73); NRBC ABSOLUTE 0.00 K/mm3 (0.00-0.02); NRBC Auto 0.0 /100 WBC (0.0-0.2); Platelet Count 169 K/mm3 (150-400); RDW Coefficient Variation 13.6 % (11.7-14.2); RDW Standard Deviation 49.7 fL (35.1-46.3)
[2025-06-16 05:33] LABS: Anion Gap 7.0 mmol/L (3-11); Blood Urea Nitrogen 33.0 mg/dL (8-24); CO2, Blood 24.0 mmol/L (21-32); Calcium, Blood 8.9 mg/dL (8.5-10.1); Chloride, Blood 119.0 mmol/L (98-108); Creatinine, Blood 1.4 mg/dL (0.60-1.20); Glucose, Blood 143.0 mg/dL (70-99); Magnesium, Blood 2.1 mg/dL (1.6-2.4); Phosphorus, Blood 1.9 mg/dL (2.5-4.9); Potassium, Blood 3.7 mmol/L (3.5-5.5); Sodium, Blood 146.0 mmol/L (136-145)
[2025-06-16] MEDS ORDERED: Potassium Phosphate Dibasic 20 MM in Dextrose 5% 500 ML IV ONE (06:00)
--- NOTE | 2025-06-16 06:06 | NUR ---
SHIFT SUMMARY: NO ACUTE CHANGES T/O THE NIGHT. PT REMAINS VENTED. NOT ON ANY SEDATION OR PRESSORS. PT DOES NOT RESPOND TO NAME, OPENS EYES SPONTANEOUSLY THOUGH DOES NOT MAKE APPROPRIATE EYE CONTACT, GAZE EITHER UPWARD OR WANDERS. PUPILS REMAIN SMALL, FIXED, NONREACTIVE TO LIGHT. BILAT CORNEAL REFLEX INTACT. PT CONTINUES TO HAVE SPASTIC MOVEMENTS W/RIGHT UPPER AND LOWER EXTREMITIES. MINIMAL MOVEMENT NOTED ON L SIDE. PT CONTINUES TO COUGH OCCASSIONALLY BUT NO GAG REFLEX IS NOTED. SBP STABLE 140S-160S. MAP >65. HR 60- WILL GET IN 100S WHEN COUGHING/BEING SUCTIONED. VENT SETTINGS AC/VC/ 12/580/7/35% W/ SATS >95%. OG TUBE IN PLACE. PIVOT TUBE FEEDINGS PAUSED AT 0030 FOR PROCEDURE THIS MORNING. TEMP TELLO REMAINS, PATENT, DRAINING TO GRAVITY. PT HAS PICC LINE IN AMPARO, INFUSING NS @ 75ML/HR AND NS TKO.
--- NOTE | 2025-06-16 12:17 | NUR ---
ASSUSMPTION OF CARE: ASSUMED CARE AT START OF SHIFT (0700). PT IS INTUBATED AND RESTING IN BED. PT NOT ALERT AND RESPONSIVE TO PAIN, NOT FOLLOWING COMMANDS AT THIS TIME. PT HAS SPONTANEOUS MOVEMENT ON R SIDE BUT NO MOVEMENT NOTED ON THE LEFT SIDE. VENT SETTINGS- ACVC+ 12/580/7/35% SPO2 >95%. SINUS RYTHM WITH SBP: 150-160'S MAP >65 HR: 60'S. PICC LINE IN LUE. TELLO CATHETER IN PLACE AND DRAINING TO GRAVITY. OG TUBE IN PLACE AND CLAMMPED, TF HAS BEEN PAUSED DUE TO TOMI PROCEDURE THAT IS OCCURING LATER THIS MORNING. LINES, CORDS, AND TUBES PLACED OUT OF REACH. CALL LIGHT PLACED WITHIN REACH.
--- NOTE | 2025-06-16 12:29 | NUR ---
UPDATE: PT WAS SCHEDULED TO HAVE TOMI PROCEDURE DONE THIS MORNING. [employer] BUS DRIVER CALLED PT'S SISTER TO CONFIRM IT WAS OK TO PROCEED WITH THE TOMI PROCEDURE. THE PT'S SISTER WANTED TO WAIT UNTIL SHE TALKED WITH OTHER SIBILINGS BEFORE SHE GAVE CONSENT FOR THE PROCEDURE. TOMI PROCEDURE HAS BEEN PUT ON HOLD FOR NOW.
[2025-06-16 13:53] LABS: Vancomycin, Random 13.5 ug/mL
--- NOTE | 2025-06-16 14:02 | NUR ---
CASE CONFERENCE: MET WITH PT'S SISTER MONICA THIS MORNING. SPOKE BY PHONE TO BOTH PT'S BROTHER BERT, ROOMMATE SHAILA AND EX- BRITTANIE. BRITTANIE HAS MADE IT CLEAR SHE AND THE PATIENT HAVE BEEN FOR 13 YEARS. SHE STATES SHE DOES NOT WISH TO BE INVOLVED IN ANY DECISION MAKING. PT'S ROOMMATE SHAILA STATES SHE'S KNOWN THE PATIENT FOR APPROXIMATELY 2 MONTHS, AND SHE STATES HE HAS TOLD HER CONTINUALLY HE IS "TIRED." SHE STATES HE HAS BEEN STRUGGLING WITH BOTH PHYSICAL AND MEMORY ISSUES. SHE STATES SHE DOESN'T BELIEVE HE WOULD WANT TO LIVE WITH WORSENING DISABLILITIES. PT'S SISTER MONICA STATES SHE WOULD LIKE TO SEE THE PATIENT BE COMFORTABLE, AND DOESN'T FEEL FURTHER TESTS, OR "POKING OR PRODDING." PT'S BROTHER BERT AGREES WITH MONICA, STATES HE IS READY TO CHANGE PT'S STATUS TO COMFORT CARE WHEN MONICA IS. DR. ZARATE IS AWARE OF THE SITUATION, AWAITING FAMILY'S DECISION.
[2025-06-16] MEDS ORDERED: Magnesium Hydroxide Conc 10 ML UDC PO PRN (14:55)
--- NOTE | 2025-06-16 14:57 | NUR ---
RESUME HEPARIN AND TF VERBAL FROM DR. RODRIGUEZ TO RESUME HEPARIN AND TF TOMI IS CURRENTLY ON HOLD WHILE FAMILY DISCUSSES GOC.
[2025-06-16] MEDS ORDERED: HydrALAZINE HCl 20 MG / ML 1ML Vial IV PRN (16:05)
--- NOTE | 2025-06-16 16:56 | NUR ---
RECEIVED PHONE CALL FROM PT'S BROTHER BERT. THE SIBLINGS HAVE DISCUSSED AND DECIDED TO CHANGE PT'S STATUS TO COMFORT CARE. RECEIVED ORDERS FROM DR. ZARATE.
[2025-06-16] MEDS ORDERED: Atropine Sulfate 1% Opth Soln 2ML BTL SL PRN (17:00)
[2025-06-16] MEDS ORDERED: Morphine Sulfate 20 MG/1ML 1 ML Oral Syringe SL PRN (17:00)
--- NOTE | 2025-06-16 18:02 | NUR ---
SHIFT SUMMARY: PT IS DOING WELL AND RESTING IN BED. PT HAS BEEN UNRESPONSIVE AND NOT FOLLOWING COMMANDS THROUGHOUT THE DAY. PT WILL SPONTANEOUSLY MOVE THEIR RIGHT LEG AND ARM. PT WAS SUPPOSE TO HAVE TOMI PROCEDURE DONE BUT PT'S SISTER MONICA WAS CONSENT, THE SISTER WANTED TO WAIT UNTIL THEY SPOKE WITH OTHER SIBLINGS BEFORE GIVING CONSENT. PT'S SISTER CALLED BACK THIS AFTERNOON AND STATED THAT THEY WANTED TO PLACE THE PT ON CONFORT CARE. PT WAS PLACED ON COMFORT CARE. THE PT WAS EXTUBATED AT 1730 ON 06/16/25 WITH RT AND NURSES AT BEDSIDE. TF WAS STOPPED AND OG TUBE WAS REMOVED DURING EXTUBATION. POST EXTUBATION, SPO2 >90% ON RA. PT STILL NOT RESPONDING TO QUESTION BUT IS OPENING EYES SPONTANEOUSLY AND MOVING RIGHT SIDE MORE FREQUENTLY. TELLO CATHETER IN PLACE AND DRIANING TO GRAVITY. LINES, CORDS, AND TUBES PLACED OUT OF REACH. CALL LIGHT PLACED WITHIN REACH.
--- NOTE | 2025-06-16 19:56 | NUR ---
REPORT GIVEN TO CHRISTOPHE MCNULTY AT APPROX. 1950. PT TRANSFER TO MED/SURG ROOM 364 @ 1956 - VSS, NO ACUTE DISTRESS NOTED.
[2025-06-16] MEDS ORDERED: Docusate Sodium Liquid 100 MG UDC PT SCH (21:00)
--- NOTE | 2025-06-17 05:24 | NUR ---
CONNOR NOC SHIFT PT ADMITTED FOR CARDIAC ARREST. PT IS COMFORT CARE. PT IS NON VERBAL AND UNABLE TO FOLLOW DIRECTION. PT HAS POINT OF TECHNICAL SUPPORT ANALYST FOR INFORMATION TO FAMILY LISTED ON WHITE BOARD. PT HAS TRIPPLE LUMIN PICC LINE LEFT UPPER CHEST AND TELLO CATH. COOPERATIVE WITH CARE AND NOT ABLE TO MAKE NEEDS KNOWN. PT IS NOT ALERT OR ORIENTED. BED IS IN LOW POSITION, RAILS TIMES TWO, AND CALL LIGHT IS WITHIN REACH.
--- NOTE | 2025-06-17 11:54 | NUR ---
[facility] care visit conducted. The patient is minimally responsive and has a friend, Yenny, of 45 yrs, bedside. She tells me about his life, his demons and his medical issues. I provided prayer upon her request. The patient's brother, Vladimir, called and we put the phone to the patient's ear for him to talk to the patient. I then talked with Vladimir and he shared about the patient's spiritual journey and the on and off nature of his tony. We also discussed his conflict of being able to get to [place]. He listed the complications and confessed his guilt. I provided gentle behavioral school counselors and encouragment. Vladimir voiced his appreciation for the call
--- NOTE | 2025-06-17 16:46 | NUR ---
Spiritual care visit conducted. Patient is lying in bed and appears a bit more restless. I provided prayer, a calming presence and words of encouragement. Patient showed signs of some relief.
--- NOTE | 2025-06-17 19:07 | NUR ---
SHIFT SUMMARY PT IS RESPONDS TO PAINFUL STIMULI AND WILL OCCASIONALLY MOAN AND GRIMACE AND RAISE THE RIGHT ARM. ROXANOL AND ATIVAN GIVEN PER JAN. IRREGULAR BREATHING WITH APNEIC PAUSES ASSESSED. FRIENDS AT BEDSIDE THROUGHOUT THIS SHIFT. SISTER, MONICA, UPDATED ON PT THIS AFTERNOON.
--- NOTE | 2025-06-18 05:34 | NUR ---
SUMMER[facility] NOC SHIFT PT ADMITTED FOR CARDIAC ARREST. PT IS COMFORT CARE. PT IS NON VERBAL AND UNABLE TO FOLLOW DIRECTION. PT HAD FAMILY VISITING TODAY. PT HAS POINT OF LEAVE MANAGER FOR INFORMATION TO FAMILY LISTED ON WHITE BOARD. PT HAS TRIPPLE LUMIN PICC LINE LEFT UPPER CHEST AND TELLO CATH. PT TURNED Q2, WITH ORAL CARE. PT NOT ABLE TO MAKE NEEDS KNOWN. PT IS NOT ALERT OR ORIENTED. BED IS IN LOW POSITION, RAILS TIMES TWO, AND CALL LIGHT IS WITHIN REACH.
--- NOTE | 2025-06-18 17:23 | NUR ---
SHIFT SUMMARY PT RESPONDING TO PAINFUL STIMULI ONLY. ON COMFORT CARE. NO ACUTE CHANGES THROUGHOUT THIS SHIFT. MEDICATED WITH ROXANOL AND ATIVAN PER JAN. OCCASSIONAL APNEIC PAUSES OR TACHYPNEA WITH SHALLOW BREATHING. TELLO IN PLACE DRAINING YELLOW URINE TO GRAVITY. FAMILY AND FRIENDS AT BEDSIDE THROUGHOUT THIS AFTERNOON.
--- NOTE | 2025-06-18 21:07 | NUR ---
Family member Meagan called as this LN was going to break. returned call and left about 2104.
--- NOTE | 2025-06-18 22:03 | NUR ---
Meagan returned phone call and gave verbal ok to call marbella (number in paper chart) if we think PT is close. just for comfort mesaures IE. not passing alone.
--- NOTE | 2025-06-19 06:05 | NUR ---
SHIFT SUMMARY: Pt admitted for cardiac arrest and is a DNR. in on comfort care. Is not alert or able to make needs known. ADLs have been a mix of 1-2p. Staff have not noted any pain. Was given something for air hunger. Breathing pattern has been border line carole-scott through most of shift. The pattern has been fairly consistent timing of breaths but the intensity will go from little chest movement to big chest movements and then drop back to little chest movement. Picc to left arm is patent with dressing that is CDI. Maria is patent and draining clear yellow urine.
--- NOTE | 2025-06-19 08:00 | NUR ---
pt laying in bed with eyes closed, not responsive, will flutter eyes occ, hrr, pulses palpated, hrr, lungs are course in upper [place], dim in bases on r/a, no cough noted, has picc line to juanpablo site is clear and patent, btx4, abd flat voids via mota draining clear yellow urine, skin c/w/d, no s/s of distress, call light in reach.
--- NOTE | 2025-06-19 18:14 | NUR ---
pt has been turned and kept clean and dry, medicated once as his breathing was getting a bit harder, lots of visitors in room today. call light in reach.
--- NOTE | 2025-06-20 05:45 | NUR ---
SHIFT SUMMARY: Pt admitted for cardiac arrest and is a DNR. in on comfort care. Is not alert or able to make needs known. ADLs have been a mix of 1-2p. Staff have not noted any pain. Picc to left arm is patent with dressing that is CDI. Maria is patent and draining clear yellow urine.
--- NOTE | 2025-06-20 08:00 | NUR ---
pt laying in bed with eyes closed, mouth is closed this am, looks more relaxed than yesterday, no s/s of distress, continues on r/a, mota in place draining clear yellow urine, will hold po meds as he is not able to wake enough to take them safely, call light in reach.
--- NOTE | 2025-06-20 11:04 | NUR ---
after pt was repositioned he was grimicing a bit, medicated per emar with roxinol, pt resting quietly at this time, call light in reach.
--- NOTE | 2025-06-20 18:36 | NUR ---
pt has remained without s/s of distress, has been repositioned regularly, kept clean and dry, oral care regularly done.visitors in room, medicated once because his resp became more labored, no further changes this shift. call light in reach.
--- NOTE | 2025-06-21 00:10 | NUR ---
This Ln spoke with family member Meagan. She expressed concern about an experience with a visitor by family while they were in the room. Meagan reported that her sister was in the room today when a woman who calls her self Lashaun or Vandana became upset with family for the choices that had been made by family. Meagan also stated that Lashaun was witnessed by family shaking the PT telling him to wake up. It was reported that both these actions upset family and they request this person not be allowed to visit the PT. This LN explained that staff would do there best to aid with this. This LN also informed Meagan of hospital guidelines. Explained that family can asked any visitor to leave and if an issue comes up to inform the staff for assistance.
--- NOTE | 2025-06-21 06:01 | NUR ---
SHIFT SUMMARY: Pt admitted for cardiac arrest and is a DNR. in on comfort care. Is not alert or able to make needs known. ADLs have been a mix of 1-2p. Staff have not noted any pain. Picc to left arm is patent with dressing that is CDI. Maria is patent and draining clear yellow urine. Breathing pattern has been much better than last couple night. Has been mostly even and regular with little note of carole scott type of breathing.
--- NOTE | 2025-06-21 16:46 | NUR ---
SHIFT SUMMARY: PT ON COMFORT CARE. REPOSITION Q2 COMPLETED. PT HAS BEEN MEDICATED THREE TIMES SO FAR THIS SHIFT FOR FLACC PAIN SCALE OF 2-4. MEDICATED ONCE FOR ANXIETY PT TWITCHING ARMS AND UNABLE TO RELAX. PT BROTHER WAS IN THIS AM. PT SISTER CALLED FOR UPDATES THERE WAS MISCOMMUNICATION BETWEEN FAMILY REGARDING NEED FOR FEEDING TUBE. UPDATED FAMILY TO THE BEST OF THIS RN ABILITY. CATH AND ORAL CARE PROVIDED. CALL LIGHT IN REACH. BED IN LOWEST POSITION.
--- NOTE | 2025-06-22 05:56 | NUR ---
PT HAS BEEN NONRESPONSIVE, MOANS WITH PAINFUL STIMULI. PT HAS HAD APNEIC BREATHING AND S/S OF AIR HUNGER MEDICATIONS GIVEN RX. PT HAS INCREASED SECREATIONS WITH COARSE CRACKLES T/O, MOIST NONPRODUCTIVE COUGH. MEDICATIONS GIVE RX. PT HAS A STRONG COUGH NO SPUTUM HAS TEJAS SEEN.
--- NOTE | 2025-06-22 16:49 | NUR ---
ROUNDED ON PT, RESTING COMFORTABLE AT THIS TIME. PENDING PLACMENT
--- NOTE | 2025-06-22 17:09 | NUR ---
SHIFT SUMMARY: COMFORT CARE PT. PT ABLE TO SLIGHTLY OPEN/TWITCH EYES WITH REPOSITION AND MOANS OUT IN PAIN. BED BATH PROVIDED THIS SHIFT. CARE MANAGEMENT AND DR. ZARATE IN TO SEE PT FAMILY THIS SHIFT. PICC LINE IN PLACE IN AMPARO; FLUSHING AND DRAWING WELL. TELLO IN PLACE WITH MINIMAL DARK YELLOW DRAINAGE. MEDICATED FOR PAIN TWICE AND ANXIETY ONCE. FAMILY AT BEDSIDE. CALL LIGHT IN REACH. BED IN LOWEST POSITION.
--- NOTE | 2025-06-23 05:20 | NUR ---
SHIFT SUMMARY PT A&OX0. RESPONDS TO PAIN. DOES NOT OPEN EYES. MOANS OCCASIONALLY. MEDICATED PER EMAR AND REPOSITIONED Q 2 HOURS. ORAL CARE PROVIDED. TELLO CATHETER PATENT AND DRAINING LJ COLORED URINE WITH SOME SEDIMENT NOTED. BREATHING IS SHALLOW AND PT APPEARS TO BE HAVING APPROX. 25 SECONDS OF APNEA AT TIMES. PT CURRENTLY RESTING COMFORTABLING IN BED AT LOWEST POSITION WITH CALL LIGHT WITHIN REACH.
--- NOTE | 2025-06-23 17:31 | NUR ---
SHIFT SUMMARY: COMFORT CARE PT. PT HAVING INCREASED PERIODS OF APNEIC EPISODES UP TO 20 SECONDS. ROXANOL PROVIDED TWICE THIS SHIFT. SCOPOLAMINE PATCH APPLIED WELL ATROPINE DROPS FOR INCREASED SECRETIONS. FAMILY IN TO SEE PT T/O SHIFT. CATH CARE PROVIDED. Q2 REPOSITION COMPLETED. CALL LIGHT IN REACH. BED IN LOWEST POSITION.
--- NOTE | 2025-06-24 06:47 | NUR ---
SHIFT SUMMARY: Pt admitted for cardiac arrest and is a DNR. in on comfort care. Is not alert or able to make needs known. ADLs have been a mix of 1-2p. Staff have not noted any pain. Picc to left arm is patent with dressing that is CDI. Maria is patent and draining clear yellow urine in scant ammonts.
--- NOTE | 2025-06-24 19:16 | NUR ---
SHIFT SUMMARY CLIENT IS ON COMFORT CARE AND HAS BEEN UNRESPONSIVE TO VERBAL STIMULI. BREATHING WAS UNLABORED UNTIL APPROX 1755. ROXINAL 5MG GIVEN. NO SIGNS OF PAIN OR DISTRESS NOTED. FAMILY HAS BEEN IN THE ROOM MOST OF THE SHIFT. CLIENT BEGAN EXHIBITING AGONAL TYPE BREATHING AT APPROXIMATELY 1840.
--- NOTE | 2025-06-24 19:18 | NUR ---
during bedside report PT at 185. sister joy was notifed by phone. brother Vladimir arrived about 5 min after joy being called. charged notified. Dr Pearl was notified at 1910.
== END 2025-06-24 18:55 | DRG 64 ==
LOC: ER 14:27 → MEDS 17:39 → ICUE 17:39 → MEDS 06-16 19:59
PROVIDERS: Emergency Medicine; Internal Medicine; Internal Medicine Critical Care Medicine; Nurse Practitioner Acute Care; Student in an Organized Health Care Education/Training Program; ADMIT Internal Medicine
PROC: 0DH67UZ Insertion of Feeding Device into Stomach, Via Natural or Artificial Opening (ICD-10-PCS; 2025-06-13)
PROC: 0T9B70Z Drainage of Bladder with Drainage Device, Via Natural or Artificial Opening (ICD-10-PCS; 2025-06-13)
PROC: 3E03329 Introduction of Other Anti-infective into Peripheral Vein, Percutaneous Approach (ICD-10-PCS; 2025-06-13)
PROC: 4A133R1 Monitoring of Arterial Saturation, Peripheral, Percutaneous Approach (ICD-10-PCS; principal; 2025-06-14)
PROC: 5A1945Z Respiratory Ventilation, 24-96 Consecutive Hours (ICD-10-PCS; 2025-06-14)
PROC: 02HV33Z Insertion of Infusion Device into Superior Vena Cava, Percutaneous Approach (ICD-10-PCS; 2025-06-14)
PROC: 3E0G76Z Introduction of Nutritional Substance into Upper GI, Via Natural or Artificial Opening (ICD-10-PCS; 2025-06-14)
DX: I63.311 Cerebral infarction due to thrombosis of right middle cerebral artery (principal); G93.41 Metabolic encephalopathy; I21.A1 Myocardial infarction type 2; R65.11 Systemic inflammatory response syndrome (SIRS) of non-infectious origin with acute organ dysfunction; J96.01 Acute respiratory failure with hypoxia; J18.9 Pneumonia, unspecified organism; N17.9 Acute kidney failure, unspecified; M62.82 Rhabdomyolysis; J44.0 Chronic obstructive pulmonary disease with (acute) lower respiratory infection; I65.21 Occlusion and stenosis of right carotid artery; Z51.5 Encounter for palliative care; Z66 Do not resuscitate; I46.8 Cardiac arrest due to other underlying condition; I10 Essential (primary) hypertension; F41.9 Anxiety disorder, unspecified; R29.702 NIHSS score 2; F32.A Depression, unspecified; E78.5 Hyperlipidemia, unspecified; M54.9 Dorsalgia, unspecified; G89.29 Other chronic pain; Z88.8 Allergy status to other drugs, medicaments and biological substances; F15.10 Other stimulant abuse, uncomplicated; Z98.890 Other specified postprocedural states; Z86.73 Personal history of transient ischemic attack (TIA), and cerebral infarction without residual deficits
CPT/HCPCS: 36415; 36569; 36600; 51702; 70450; 71045; 80048; 80053; 80202; 80320; 81001; 82550; 82803; 82947; 83605; 83735; 84100; 84484; 84550; 85014; 85018; 85025; 87040; 87070; 87205; 93005; 93010; 93306; 93880; 94002; 94003; 94640; 94762; 96361-59; 96365-59; 99285-25; A9270; C1751; J0360; J0461; J0696; J1644; J1815; J2470; J2704; J3010; J3373; J7030; J7040; J7050; J7060; J7120; Q9967